=== PATIENT | female | born 1950 | race Caucasian/White ===

== ENCOUNTER 2017-05-11 13:50 | Inpatient (IN) | payer OTHER ==
[~2017-05-11] VITALS: Ht 170.2 cm; Wt 61.9 kg
[~2017-05-11 13:50] MED LIST: ACYC400T GT; ALEN70TA55 PO; ESTR0.3T PO; LOR05T PO; POTA10TA34 PO; PRE5T PO; PSEU30TA3 PO; QUET300T14 PO; SERT-160 PO
[2017-05-11] MEDS ORDERED: SODIUM CHLORIDE 0.9% 1,000 ML IV ONE (14:05)
[2017-05-11] MEDS ORDERED: ALBUTEROL SULF 2.5 MG/0.5ML(0.5%) NEB SOLN HHN ONE (14:15)
[2017-05-11] MEDS ORDERED: methylPREDNISolone SOD SUCC 125 MG/2 ML VL IV ONE (14:15)
[2017-05-11] MEDS ORDERED: IPRATROPIUM BROM 0.5 MG/2.5ML INH SOL HHN ONE (14:15)
[2017-05-11 14:27] LABS: Basophils # (auto) 0.1 uL; Basophils % (auto) 0.6 % (0.0-2.0); CONDITION Y; Eosinophils # (auto) 0 uL; Eosinophils % (auto) 0.3 % (0.0-7.0); Hematocrit 42.8 % (36.0-46.0); Hemoglobin 14.3 g/dL (12.2-16.2); Lymphocytes # (auto) 3.7 uL; Lymphocytes % (auto) 25.1 % (10.0-50.0); Mean Corpuscular Hemoglobin 30.7 pg (28.0-32.0); Mean Corpuscular Hgb Conc. 33.4 g/dL (32.0-36.0); Mean Corpuscular Volume 91.9 fL (80.0-100.0); Monocytes # (auto) 1.3 uL; Monocytes % (auto) 8.5 % (0.0-12.0); Neutrophils # (auto) 9.7 uL; Neutrophils % (auto) 65.5 % (37.0-80.0); Platelet Count (auto) 430 10^3/uL (140-450); Red Cell Distribution Width 13.4 % (11.6-16.0); White Blood Cell 14.8 10^3/uL (4.4-10.8)
[2017-05-11 14:35] LABS: Allen Test Yes; Blood 02Sat 90.4 % (96-100); Blood COHb 0.3 % (0.5-1.5); Blood MetHb 0.3 % (0.0-1.5); HCO3 31.7 mmol/L (22-26.0); HHb 9.5 % (0.0-5.0); MODE NASAL CANNULA; O2Hb 89.9 % (94.0-97.0); PCO2 44.9 mmHg (35.0-45.0); PCO2(T) 44.9 mmHg (35.0-45.0); PO2 59.1 mmHg (80.0-100.0); PO2(T) 59.1 mmHg (80.0-100.0); Sample Type Arterial; pH 7.466 (7.350-7.450)
[2017-05-11 14:56] LABS: Albumin 3.4 g/dL (3.4-5.0); BUN/Creatinine Ratio 20.8; Bilirubin, Total 0.3 mg/dL (0.2-1.0); Calcium 8.6 mg/dL (8.5-10.1); Total Protein 6.8 g/dL (6.4-8.2)
[2017-05-11 14:59] LABS: B-Type Natriuretic Peptide 60.45 pg/mL (0-100); Potassium 2.9 mmol/L (3.5-5.1)
[2017-05-11 15:01] LABS: Temperature: 23.3 C (20.0-25.0)
[2017-05-11] MEDS ORDERED: PSEUDOEPHEDRINE HCL 30 MG TAB PO PRN (15:45)
[2017-05-11] MEDS ORDERED: AZITHROMYCIN 500MG/D5W 250ML 250 ML IV ONE (15:45)
[2017-05-11] MEDS ORDERED: POTASSIUM CHL 20 Meq TABLET PO ONE (15:45)
[2017-05-11] MEDS ORDERED: ALENDRONATE SODIUM 10 MG TAB PO SCH (15:45)
[2017-05-11] MEDS ORDERED: cefTRIAXone 1GM/50ML D5W 50 ML IV ONE (15:45)
[2017-05-11] MEDS ORDERED: DOCUSATE SOD 100 MG CAP PO PRN (16:00)
[2017-05-11] MEDS ORDERED: NITROGLYCERIN 0.4 MG SL TAB SL PRN (16:00)
[2017-05-11] MEDS ORDERED: TEMAZEPAM 15 MG CAP PO PRN (16:00)
[2017-05-11] MEDS ORDERED: HYDROcodone-ACET 5/325MG TAB PO PRN (16:00)
[2017-05-11] MEDS ORDERED: ONDANSETRON HCL 4 MG/2 ML VIAL IV PRN (16:00)
[2017-05-11] MEDS ORDERED: MORPHINE SULF INJ 2 MG/ML SYRINGE 1ML IV PRN ×2 (16:00)
[2017-05-11] MEDS ORDERED: ACETAMINOPHEN 325 MG TAB PO PRN (16:00)
[2017-05-11 17:04] LABS: REFLEX LACTIC ACID YES OR NO YES
[2017-05-11] MEDS: ACYCLOVIR 400 MG TAB PO SCH ×2 (18:00→19:01)
[2017-05-11] MEDS: ALBUTEROL SULF 2.5 MG/0.5ML(0.5%) NEB SOLN NEB SCH ×2 (18:14→22:27)
[2017-05-11] MEDS: IPRATROPIUM BROM 0.5 MG/2.5ML INH SOL NEB SCH ×2 (18:14→22:27)
[2017-05-11 20:24] LABS: BUN/Creatinine Ratio 15.7; Calcium 8.3 mg/dL (8.5-10.1); Potassium 3.2 mmol/L (3.5-5.1)
[2017-05-11 20:27] LABS: Lactic Acid w/Reflex 4.4 mmol/L (0.4-2.0)
[2017-05-11 20:51] LABS: REFLEX LACTIC ACID YES OR NO YES
[2017-05-11] MEDS: FAMOTIDINE 20 MG TAB PO SCH (22:06)
[2017-05-11] MEDS: QUEtiapine FUMARATE 100 MG TAB PO SCH (22:06)
[2017-05-11] MEDS: SODIUM CHLOR 0.9% PF (SALINE LOCK) 10ML VIAL IV SCH (22:06)
[2017-05-12] VITALS (7 sets, daily range): BP systolic 115–133; BP diastolic 65–88
[2017-05-12] MEDS: methylPREDNISolone SOD SUCC 40 MG/ML VL IV SCH ×4 (00:17→19:11)
[2017-05-12] MEDS: IPRATROPIUM BROM 0.5 MG/2.5ML INH SOL NEB SCH ×6 (02:28→22:20)
[2017-05-12] MEDS: ALBUTEROL SULF 2.5 MG/0.5ML(0.5%) NEB SOLN NEB SCH ×6 (02:28→22:20)
[2017-05-12] MEDS: LORazepam 0.5 MG TAB PO PRN ×2 (03:44→21:46)
[2017-05-12] MEDS: SODIUM CHLOR 0.9% PF (SALINE LOCK) 10ML VIAL IV SCH ×3 (05:51→21:43)
[2017-05-12] MEDS: QUEtiapine FUMARATE 100 MG TAB PO SCH ×3 (05:53→21:43)
[2017-05-12] MEDS ORDERED: ALENDRONATE SODIUM 10 MG TAB PO SCH (06:00)
[2017-05-12 08:24] LABS: Basophils # (auto) 0.2 uL; Basophils % (auto) 1.9 % (0.0-2.0); CONDITION Y; Eosinophils # (auto) 0 uL; Hematocrit 39.5 % (36.0-46.0); Hemoglobin 13.3 g/dL (12.2-16.2); Lymphocytes # (auto) 0.7 uL; Lymphocytes % (auto) 6.1 % (10.0-50.0); Mean Corpuscular Hemoglobin 32.6 pg (28.0-32.0); Mean Corpuscular Hgb Conc. 33.6 g/dL (32.0-36.0); Mean Corpuscular Volume 96.9 fL (80.0-100.0); Mean Platelet Volume 8.5 fL (7.4-10.4); Monocytes # (auto) 0.8 uL; Monocytes % (auto) 6.7 % (0.0-12.0); Neutrophils # (auto) 10.4 uL; Neutrophils % (auto) 85.3 % (37.0-80.0); Platelet Count (auto) 216 10^3/uL (140-450); Red Cell Distribution Width 13.8 % (11.6-16.0); White Blood Cell 12.2 10^3/uL (4.4-10.8)
[2017-05-12 08:53] LABS: Albumin 3.7 g/dL (3.4-5.0); BUN/Creatinine Ratio 35.2; Bilirubin, Total 0.7 mg/dL (0.2-1.0); Potassium 3.7 mmol/L (3.5-5.1); Total Protein 6.7 g/dL (6.4-8.2)
[2017-05-12] MEDS: ESTROGEN CONJ 0.3 MG TAB PO SCH (10:00)
[2017-05-12] MEDS: AZITHROMYCIN 500MG/D5W 250ML 250 ML IV SCH (10:57)
[2017-05-12] MEDS: POTASSIUM CHL 10 Meq TABLET PO SCH (10:57)
[2017-05-12] MEDS: cefTRIAXone 1GM/50ML D5W 50 ML IV SCH (10:57)
[2017-05-12] MEDS: MULTIPLE VITAMIN TAB PO SCH (10:57)
[2017-05-12] MEDS: SERTRALINE HCL 50 MG TAB PO SCH (10:58)
[2017-05-12] MEDS: FAMOTIDINE 20 MG TAB PO SCH ×2 (10:58→21:43)
[2017-05-12] MEDS: ACYCLOVIR 400 MG TAB PO SCH (19:11)
[2017-05-13] MEDS: IPRATROPIUM BROM 0.5 MG/2.5ML INH SOL NEB SCH ×3 (02:07→10:30)
[2017-05-13] MEDS: ALBUTEROL SULF 2.5 MG/0.5ML(0.5%) NEB SOLN NEB SCH ×3 (02:07→10:30)
[2017-05-13] MEDS: methylPREDNISolone SOD SUCC 40 MG/ML VL IV SCH ×2 (02:21→05:59)
[2017-05-13 05:00] VITALS: BP 147/90
[2017-05-13] MEDS: QUEtiapine FUMARATE 100 MG TAB PO SCH (05:59)
[2017-05-13] MEDS: SODIUM CHLOR 0.9% PF (SALINE LOCK) 10ML VIAL IV SCH (05:59)
[2017-05-13 09:43] VITALS: BP 162/96
[2017-05-13] MEDS: ACYCLOVIR 400 MG TAB PO SCH (09:46)
[2017-05-13] MEDS: cefTRIAXone 1GM/50ML D5W 50 ML IV SCH (09:46)
[2017-05-13] MEDS: AZITHROMYCIN 500MG/D5W 250ML 250 ML IV SCH (10:00)
[2017-05-13] MEDS: ESTROGEN CONJ 0.3 MG TAB PO SCH (10:00)
[2017-05-13] MEDS: MULTIPLE VITAMIN TAB PO SCH (10:34)
[2017-05-13] MEDS: POTASSIUM CHL 10 Meq TABLET PO SCH (10:34)
[2017-05-13] MEDS: SERTRALINE HCL 50 MG TAB PO SCH (10:34)
[2017-05-13] MEDS: FAMOTIDINE 20 MG TAB PO SCH (10:34)
== END 2017-05-13 11:30 | disposition home or self-care (01) | DRG 871 ==
LOC: ER 13:50 → TELE 13:51 → TELE-CENTR 05-12 03:15 → CENTRAL 05-12 15:08
PROVIDERS: ADMIT Internal Medicine; ATTEND Internal Medicine
DX: A41.9 Sepsis, unspecified organism (principal); J18.9 Pneumonia, unspecified organism; J96.21 Acute and chronic respiratory failure with hypoxia; J44.0 Chronic obstructive pulmonary disease with (acute) lower respiratory infection; J45.901 Unspecified asthma with (acute) exacerbation; J98.11 Atelectasis; J44.1 Chronic obstructive pulmonary disease with (acute) exacerbation; J20.9 Acute bronchitis, unspecified; N18.2 Chronic kidney disease, stage 2 (mild); I50.9 Heart failure, unspecified; E87.6 Hypokalemia; R07.89 Other chest pain; Z79.899 Other long term (current) drug therapy; Z82.49 Family history of ischemic heart disease and other diseases of the circulatory system; Z87.891 Personal history of nicotine dependence; Z99.81 Dependence on supplemental oxygen
CPT/HCPCS: 36415; 36600; 71010; 80048; 80053; 82805; 83605; 83880; 84443; 84484; 85025; 87040; 93005; 94640; 94644; 96361; 96365; 96367; 96375; J0696